=== PATIENT | female | born 1965 | race Caucasian/White ===

== ENCOUNTER 2020-04-06 03:33 | Emergency (ER) | payer SELFPAY ==
[~2020-04-06] VITALS: Ht 152.4 cm; Wt 52.0 kg
[2020-04-06 03:45] VITALS: BP 150/79
--- NOTE | 2020-04-06 04:07 | PHYS DOC ---
Past Medical History Past Medical History: No Pertinent History Past Surgical History: Smoking Status: Current Every Day Smoker Alcohol Use: None Drug Use: None General Adult EDM: Chief Complaint: DENTAL PROBLEM HPI: HPI: Patient is a 55 year old female who presents with complaint of dental pain all over that has been going on for a couple years. Patient states that the pain is just getting to the point where she is having difficult time tolerating it. Patient has had no fever. She has no facial swelling. She rates pain as moderate to severe. She states that nothing is improving her symptoms. [] Review of Systems: Review of Systems: Constitutional: Denies fever or chills. [] HENT: Positive dental pain. [] Respiratory: Denies cough or shortness of breath. [] Cardiovascular: Denies chest pain or edema. [] Neurologic: Denies headache, focal weakness or sensory changes. [] Heart Score: Risk Factors: Risk Factors: DM, Current or recent (<one month) smoker, HTN, HLP, family history of CAD, obesity. Risk Scores: Score 0 - 3: 2.5% MACE over next 6 weeks - Discharge Home Score 4 - 6: 20.3% MACE over next 6 weeks - Admit for Clinical Observation Score 7 - 10: 72.7% MACE over next 6 weeks - Early Invasive Strategies Allergies: Allergies: Allergies Coded Allergies Type Severity Reaction Last Updated Verified No Known Drug Allergies 03/07/15 No Physical Exam: PE: Constitutional: Well developed, well nourished, no acute distress, non-toxic appearance. [] HENT: Normocephalic, atraumatic, bilateral external ears normal, oropharynx moist, oral dentition is very poor with moderate to severe widespread caries present. [] Neck: Normal range of motion, no tenderness, supple, no lymphadenopathy. [] Cardiovascular: Regular rate and rhythm [] Lungs & Thorax: Bilateral breath sounds clear to auscultation [] EKG: EKG: [] Radiology/Procedures: Radiology/Procedures: [] Course & Med Decision Making: Course & Med Decision Making Pertinent Labs and Imaging studies reviewed. (See chart for details) [] Dragon Disclaimer: Dragon Disclaimer: This electronic medical record was generated, in whole or in part, using a voice recognition dictation system. Departure Departure Impression: Primary Impression: Pain due to dental caries Disposition: 07 AGAINST MEDICAL ADVICE (A medical screening examination was performed on this patient and they elected to follow-up as outpatient and lieu of paying $150 co-pay.) Condition: STABLE Referrals: NO PCP (PCP) CALLY FITCH Jr. DO April 06, 2020 04:07
== END 2020-04-06 04:02 | disposition left against medical advice (07) ==
LOC: ER 03:33
DX: K02.9 Dental caries, unspecified (principal); F17.200 Nicotine dependence, unspecified, uncomplicated
CPT/HCPCS: 99281